=== PATIENT | female | born 1935 | race Caucasian/White ===

== ENCOUNTER 2020-02-26 07:40 | Emergency (ER) | payer MEDICARE ==
[~2020-02-26] VITALS: Ht 152.4 cm; Wt 48.2 kg
[2020-02-26 07:46] VITALS: BP 175/95
[2020-02-26] MEDS ORDERED: acetaminophen 325mg tablet PO ONE (08:40)
[2020-02-26 08:58] LABS: CLARITY,URINE CLEAR (Clear); COLOR,URINE YELLOW (Yellow); GLUCOSE, URINE NEGATIVE (Neg); KETONES,URINE NEGATIVE (Neg); LEUKOCYTE ESTERASE ,URINE SMALL (Neg); NITRITES, URINE NEGATIVE (Neg); OCCULT BLOOD,URINE NEGATIVE (Neg); PROTEIN,URINE NEGATIVE (Neg); UROBILINOGEN,URINE 0.2 E.U/dL (0.2-1.0)
[2020-02-26 09:05] LABS: UA COLLECTION TYPE CLN CATCH MIDSTREAM
[2020-02-26 09:06] LABS: RBC,URINE NONE SEEN /HPF (0-2)
[2020-02-26 09:07] LABS: BACTERIA,URINE FEW /HPF (Neg); MUCUS STRANDS NONE SEEN /LPF (Neg); SQUAMOUS EPITHELIAL CELL,UR FEW /LPF (FEW)
[2020-02-26] MEDS ORDERED: CEFD300C3 PO (09:13)
== END 2020-02-26 09:25 | disposition home or self-care (01) ==
LOC: ER 07:40
DX: N39.0 Urinary tract infection, site not specified (principal); K08.89 Other specified disorders of teeth and supporting structures; R51 Headache; R68.2 Dry mouth, unspecified; Z88.8 Allergy status to other drugs, medicaments and biological substances; Z79.899 Other long term (current) drug therapy
CPT/HCPCS: 81001; 99283

== ENCOUNTER 2020-03-03 21:31 | Emergency (ER) | payer MEDICARE ==
[~2020-03-03] VITALS: Ht 152.4 cm; Wt 50.8 kg
[~2020-03-03 21:31] MED LIST: CEFD300C3 PO
[2020-03-03] MEDS ORDERED: normal saline 1000ML IV soln IVB ONE (22:05)
[2020-03-03 22:21] LABS: CLARITY,URINE CLEAR (Clear); COLOR,URINE YELLOW (Yellow); GLUCOSE, URINE NEGATIVE (Neg); KETONES,URINE NEGATIVE (Neg); LEUKOCYTE ESTERASE ,URINE NEGATIVE (Neg); NITRITES, URINE NEGATIVE (Neg); OCCULT BLOOD,URINE NEGATIVE (Neg); PROTEIN,URINE NEGATIVE (Neg); UROBILINOGEN,URINE 0.2 E.U/dL (0.2-1.0)
[2020-03-03 22:28] LABS: UA COLLECTION TYPE CLN CATCH MIDSTREAM
[2020-03-03 22:53] LABS: BASOPHILS # (AUTO) 0.1 X10'3 (0-0.2); BASOPHILS % (AUTO) 1.3 % (0-1); EOSINOPHILS # (AUTO) 0.1 X10'3 (0-0.9); HEMATOCRIT 38.1 % (35.0-45.0); HEMOGLOBIN 12.2 g/dl (12.0-16.0); LYMPHOCYTES # (AUTO) 1.2 X10'3 (1.1-4.8); LYMPHOCYTES % (AUTO) 26.2 % (21-51); MEAN CORPUSCULAR VOLUME 84.5 FL (78-98); MEAN PLATELET VOLUME 8.2 FL (7.4-10.4); MONOCYTES # (AUTO) 0.6 X10'3 (0-0.9); MONOCYTES % (AUTO) 13.5 % (2-12); NEUTROPHILS # (AUTO) 2.5 X10'3 (1.8-7.7); PLATELET COUNT 203 X10'3 (140-440); RED BLOOD COUNT 4.51 X10'6 (4.20-5.60); RED CELL DISTRIBUTION WIDTH 16.2 % (11.5-14.5); WHITE BLOOD COUNT 4.5 X10'3 (4.5-11.0)
[2020-03-03 23:07] LABS: ALANINE AMINOTRANSFERASE 41 U/L (12-78); ALBUMIN 3.5 G/DL (3.4-5.0); ALKALINE PHOSPHATASE 50 IU/L (46-116); ANION GAP 8 (8-16); ASPARTATE AMINO TRANSFERASE 45 U/L (10-37); BILIRUBIN,TOTAL 0.3 MG/DL (0.1-1.0); BLOOD UREA NITROGEN 23 MG/DL (7-18); BUN/CREATININE RATIO 24.5 (6.6-38.0); CALCIUM 8.8 MG/DL (8.5-10.1); CHLORIDE 106 MMOL/L (99-107); CREATININE 0.94 MG/DL (0.40-0.90); GLUCOSE 96 MG/DL (70-104); POTASSIUM 4.3 MMOL/L (3.5-5.1); SODIUM 142 MMOL/L (135-145); TOTAL CARBON DIOXIDE 28.4 MMOL/L (24-32); TOTAL PROTEIN 6.9 G/DL (6.4-8.2); eGFR 57 ML/MIN
[2020-03-03 23:15] LABS: ETHANOL < 0.010 GM/DL (0.0-0.010)
[2020-03-03 23:49] LABS: URINE AMPHETAMINE SCREEN NEGATIVE (Neg); URINE BARBITUATE SCREEN NEGATIVE (Neg); URINE BENZODIAZEPINES SCREEN NEGATIVE (Neg); URINE CANNABINOID SCREEN NEGATIVE (Neg); URINE COCAINE SCREEN NEGATIVE (Neg); URINE METHADONE SCREEN NEGATIVE (Neg); URINE OPIATE SCREEN NEGATIVE (Neg); URINE PHENCYCLIDINE SCREEN NEGATIVE (Neg)
[2020-03-04 00:15] VITALS: BP 149/76
== END 2020-03-04 00:18 | disposition home or self-care (01) ==
LOC: ER 21:31
DX: N28.9 Disorder of kidney and ureter, unspecified (principal); R47.01 Aphasia; R44.1 Visual hallucinations; R51 Headache; R42 Dizziness and giddiness; R41.0 Disorientation, unspecified; Z88.8 Allergy status to other drugs, medicaments and biological substances; Z79.899 Other long term (current) drug therapy
CPT/HCPCS: 36415; 70450; 80053; 80305; 80320; 81003; 84443; 85025; 96360; 99284; J7030

== ENCOUNTER 2020-04-19 04:50 | Emergency (ER) | payer MEDICARE ==
[~2020-04-19] VITALS: Ht 152.4 cm; Wt 48.2 kg
[2020-04-19] MEDS ORDERED: normal saline 1000ml 1,000 ML IV ONE (05:10)
[2020-04-19] MEDS ORDERED: ondansetron/PF 4mg/2ml inj IV ONE (05:10)
[2020-04-19] MEDS ORDERED: famotidine/PF 10 mg/ml inj IV ONE (05:15)
[2020-04-19] MEDS ORDERED: pantoprazole 40 MG vial IV ONE (05:15)
[2020-04-19] MEDS ORDERED: LIDOcaine Viscous 15ml cup MM ONE (05:15)
[2020-04-19] MEDS ORDERED: mag hydrox/Alum hydrox/simeth 30ml oral suspension PO ONE ×2 (05:15→06:00)
[2020-04-19 05:50] LABS: BASOPHILS % (AUTO) 0.8 % (0-1); EOSINOPHILS # (AUTO) 0.2 X10'3 (0-0.9); EOSINOPHILS % (AUTO) 3.2 % (0-6); HEMATOCRIT 36.3 % (35.0-45.0); HEMOGLOBIN 11.8 g/dl (12.0-16.0); LYMPHOCYTES # (AUTO) 0.9 X10'3 (1.1-4.8); LYMPHOCYTES % (AUTO) 17.6 % (21-51); MEAN CORPUSCULAR HEMOGLOBIN 27.1 PG (27.0-31.0); MEAN CORPUSCULAR HGB CONC 32.6 g/dL (33.0-36.5); MEAN CORPUSCULAR VOLUME 83.1 FL (78-98); MEAN PLATELET VOLUME 8.7 FL (7.4-10.4); MONOCYTES # (AUTO) 0.6 X10'3 (0-0.9); MONOCYTES % (AUTO) 10.2 % (2-12); NEUTROPHILS # (AUTO) 3.7 X10'3 (1.8-7.7); NEUTROPHILS % (AUTO) 68.2 % (42-75); PLATELET COUNT 191 X10'3 (140-440); RED BLOOD COUNT 4.37 X10'6 (4.20-5.60); RED CELL DISTRIBUTION WIDTH 15.8 % (11.5-14.5); WHITE BLOOD COUNT 5.4 X10'3 (4.5-11.0)
[2020-04-19 06:10] LABS: ALANINE AMINOTRANSFERASE 27 U/L (12-78); ALBUMIN 3.5 G/DL (3.4-5.0); ALKALINE PHOSPHATASE 49 IU/L (46-116); ANION GAP 6 (8-16); ASPARTATE AMINO TRANSFERASE 30 U/L (10-37); BILIRUBIN,TOTAL 0.4 MG/DL (0.1-1.0); BLOOD UREA NITROGEN 29 MG/DL (7-18); BUN/CREATININE RATIO 36.3 (6.6-38.0); CALCIUM 9.2 MG/DL (8.5-10.1); CHLORIDE 105 MMOL/L (99-107); GLUCOSE 98 MG/DL (70-104); POTASSIUM 3.9 MMOL/L (3.5-5.1); SODIUM 140 MMOL/L (135-145); TOTAL CARBON DIOXIDE 28.8 MMOL/L (24-32); TOTAL PROTEIN 6.9 G/DL (6.4-8.2); eGFR 69 ML/MIN
[2020-04-19 06:12] LABS: LIPASE 249 U/L (73-393); TROPONIN I < 0.04 NG/ML (0.0-0.05)
[2020-04-19 06:22] LABS: CLARITY,URINE CLEAR (Clear); COLOR,URINE STRAW (Yellow); GLUCOSE, URINE NEGATIVE (Neg); KETONES,URINE NEGATIVE (Neg); LEUKOCYTE ESTERASE ,URINE NEGATIVE (Neg); NITRITES, URINE NEGATIVE (Neg); OCCULT BLOOD,URINE NEGATIVE (Neg); PROTEIN,URINE NEGATIVE (Neg); UROBILINOGEN,URINE 0.2 E.U/dL (0.2-1.0)
[2020-04-19 06:25] LABS: UA COLLECTION TYPE OTHER
--- NOTE | 2020-04-19 07:07 | NUR ---
PT C/O EPIGASTRIC PAIN ON SCALE 8/10
--- NOTE | 2020-04-19 08:20 | NUR ---
PT STATES, IM FEELING MUCH BETTER, IM HAVING NO PAIN.
[2020-04-19] MEDS ORDERED: OMEP20CA15 PO ×2 (08:28→09:29)
[2020-04-19 09:05] VITALS: BP 139/77
--- NOTE | 2020-04-19 09:09 | NUR ---
PT UP TO BR VIA WHEELCHAIR IN STABLE CONDITION.
== END 2020-04-19 09:16 | disposition home or self-care (01) ==
LOC: ER 04:50
DX: K20.9 Esophagitis, unspecified (principal); K59.00 Constipation, unspecified; N20.0 Calculus of kidney; R10.9 Unspecified abdominal pain; R11.0 Nausea; Z79.899 Other long term (current) drug therapy
CPT/HCPCS: 36415; 71045; 74176; 80053; 81003; 83690; 84484; 85025; 93005; 96361; 96374; 96375; 99285; C9113; J2405; J3490; J7030

== ENCOUNTER 2022-03-07 15:20 | Emergency (ER) | payer MEDICARE ==
[~2022-03-07] VITALS: Ht 154.9 cm; Wt 47.7 kg
[~2022-03-07 15:20] MED LIST changes: -CEFD300C3 PO; +OMEP20CA15 PO
[2022-03-07 19:34] LABS: HEMOGLOBIN 13.2 g/dl (12.0-16.0); MEAN CORPUSCULAR VOLUME 80.4 FL (78-98); RED CELL DISTRIBUTION WIDTH 17.5 % (11.5-14.5)
[2022-03-07 19:36] LABS: BASOPHILS % (AUTO) 0.4 % (0-1); EOSINOPHILS % (AUTO) 0.2 % (0-6); HEMATOCRIT 40.7 % (35.0-45.0); LYMPHOCYTES # (AUTO) 0.4 X10'3 (1.1-4.8); LYMPHOCYTES % (AUTO) 9.1 % (21-51); MEAN CORPUSCULAR HEMOGLOBIN 26.1 PG (27.0-31.0); MEAN CORPUSCULAR HGB CONC 32.4 g/dL (33.0-36.5); MEAN PLATELET VOLUME 8.2 FL (7.4-10.4); MONOCYTES # (AUTO) 0.8 X10'3 (0-0.9); MONOCYTES % (AUTO) 17.3 % (2-12); NEUTROPHILS # (AUTO) 3.5 X10'3 (1.8-7.7); PLATELET COUNT 190 X10'3 (140-440); RED BLOOD COUNT 5.06 X10'6 (4.20-5.60); WHITE BLOOD COUNT 4.8 X10'3 (4.5-11.0)
[2022-03-07 19:37] LABS: ALANINE AMINOTRANSFERASE 51 U/L (12-78); ALBUMIN 3.9 G/DL (3.4-5.0); ALKALINE PHOSPHATASE 57 IU/L (46-116); ANION GAP 11 (8-16); ASPARTATE AMINO TRANSFERASE 48 U/L (10-37); BILIRUBIN,TOTAL 0.7 MG/DL (0.1-1.0); BLOOD UREA NITROGEN 23 MG/DL (7-18); BUN/CREATININE RATIO 20.9 (6.6-38.0); CALCIUM 8.8 MG/DL (8.5-10.1); CHLORIDE 101 MMOL/L (99-107); GLUCOSE 102 MG/DL (70-104); POTASSIUM 4.2 MMOL/L (3.5-5.1); SODIUM 137 MMOL/L (135-145); TOTAL CARBON DIOXIDE 25.1 MMOL/L (24-32); TOTAL PROTEIN 7.9 G/DL (6.4-8.2); eGFR 47 ML/MIN
[2022-03-07 19:47] LABS: CLARITY,URINE CLEAR (Clear); COLOR,URINE YELLOW (Yellow); GLUCOSE, URINE NEGATIVE (Neg); KETONES,URINE TRACE mg/dl (Neg); LEUKOCYTE ESTERASE ,URINE NEGATIVE (Neg); NITRITES, URINE NEGATIVE (Neg); OCCULT BLOOD,URINE NEGATIVE (Neg); PH,URINE 6.5 (4.8-8.0); PROTEIN,URINE NEGATIVE (Neg); UROBILINOGEN,URINE 0.2 E.U/dL (0.2-1.0)
[2022-03-07 19:48] LABS: UA COLLECTION TYPE CLN CATCH MIDSTREAM
[2022-03-07] MEDS ORDERED: normal saline 1000ml 1,000 ML IV ONE (19:50)
[2022-03-07] MEDS ORDERED: ringers solution, lactated 1000ml IV soln IV ONE (20:15)
[2022-03-07] MEDS ORDERED: acetaminophen 325mg tablet PO ONE (21:00)
[2022-03-07 22:05] VITALS: BP 143/84
== END 2022-03-07 22:30 | disposition home or self-care (01) ==
LOC: ER 15:21
DX: J10.1 Influenza due to other identified influenza virus with other respiratory manifestations (principal); Z20.822 Contact with and (suspected) exposure to COVID-19; R05.9 Cough, unspecified; R50.9 Fever, unspecified; R53.1 Weakness; E86.0 Dehydration; Z87.440 Personal history of urinary (tract) infections; Z88.1 Allergy status to other antibiotic agents; Z79.899 Other long term (current) drug therapy
CPT/HCPCS: 71045; 80053; 81003; 85025; 87502; 87503; 87635; 93005; 96360; 99285; C9803; J7030; J7120

== ENCOUNTER 2023-06-15 10:22 | Emergency (ER) | payer MEDICARE ==
[~2023-06-15] VITALS: Ht 152.4 cm; Wt 44.0 kg
[2023-06-15 10:24] VITALS: BP 164/93; PULSE 93; TEMP 98.1; O2SAT 98
[2023-06-15] MEDS ORDERED: ketorolac tromethamine 15mg/ml inj. IM ONE (11:10)
[2023-06-15 11:18] VITALS: RESP 17
[2023-06-15] MEDS ORDERED: NAPR-56 PO (11:34)
[2023-06-15] MEDS ORDERED: CYCL-1 PO (11:34)
== END 2023-06-15 11:59 | disposition home or self-care (01) ==
LOC: ER 10:22
DX: S39.012A Strain of muscle, fascia and tendon of lower back, initial encounter (principal); X58.XXXA Exposure to other specified factors, initial encounter; Y93.89 Activity, other specified; Y92.89 Other specified places as the place of occurrence of the external cause; Y99.8 Other external cause status
CPT/HCPCS: 96372; 99284; J1885

== ENCOUNTER 2023-06-21 14:00 | Emergency (ER) | payer MEDICARE ==
[~2023-06-21] VITALS: Ht 152.4 cm; Wt 93.0 kg
[~2023-06-21 14:00] MED LIST changes: +CYCL-1 PO; +NAPR-56 PO
[2023-06-21 14:06] VITALS: BP 124/87; PULSE 130; RESP 18; O2SAT 99
[2023-06-21 14:50] LABS: BASOPHILS # (AUTO) 0.1 X10'3 (0-0.2); BASOPHILS % (AUTO) 0.8 % (0-1); EOSINOPHILS # (AUTO) 0.1 X10'3 (0-0.9); EOSINOPHILS % (AUTO) 1.4 % (0-6); HEMATOCRIT 37.6 % (35.0-45.0); HEMOGLOBIN 12.1 g/dl (12.0-16.0); MEAN CORPUSCULAR HEMOGLOBIN 25.7 PG (27.0-31.0); MEAN CORPUSCULAR VOLUME 80.2 FL (78-98); MEAN PLATELET VOLUME 7.7 FL (7.4-10.4); MONOCYTES # (AUTO) 0.7 X10'3 (0-0.9); MONOCYTES % (AUTO) 10.2 % (2-12); NEUTROPHILS # (AUTO) 4.7 X10'3 (1.8-7.7); NEUTROPHILS % (AUTO) 72.6 % (42-75); PLATELET COUNT 321 X10'3 (140-440); RED BLOOD COUNT 4.69 X10'6 (4.20-5.60); WHITE BLOOD COUNT 6.5 X10'3 (4.5-11.0)
[2023-06-21 15:15] LABS: ALANINE AMINOTRANSFERASE 32 U/L (12-78); ALBUMIN 3.5 G/DL (3.4-5.0); ALKALINE PHOSPHATASE 90 IU/L (46-116); ANION GAP 6 (8-16); ASPARTATE AMINO TRANSFERASE 28 U/L (10-37); BILIRUBIN,TOTAL 0.4 MG/DL (0.1-1.0); BLOOD UREA NITROGEN 31 MG/DL (7-18); BUN/CREATININE RATIO 24.6 (10.0-20.0); CALCIUM 9.3 MG/DL (8.5-10.1); CHLORIDE 100 MMOL/L (99-107); CREATININE 1.26 MG/DL (0.40-0.90); GLUCOSE 102 MG/DL (70-104); POTASSIUM 4.6 MMOL/L (3.5-5.1); PRO BRAIN NATRIURETIC PEPTIDE 360 PG/ML (0-450); SODIUM 136 MMOL/L (135-145); TOTAL CARBON DIOXIDE 29.6 MMOL/L (24-32); eCRCL 23 ML/MIN; eGFR 40 ML/MIN
[2023-06-21] MEDS ORDERED: normal saline 1000ML IV soln IVB ONE (15:25)
[2023-06-21 16:50] LABS: BILIRUBIN,URINE NEGATIVE (Neg); CLARITY,URINE CLEAR (Clear); COLOR,URINE YELLOW (Yellow); GLUCOSE, URINE NEGATIVE (Neg); KETONES,URINE NEGATIVE (Neg); LEUKOCYTE ESTERASE ,URINE NEGATIVE (Neg); NITRITES, URINE NEGATIVE (Neg); OCCULT BLOOD,URINE NEGATIVE (Neg); PH,URINE 6.5 (4.8-8.0); PROTEIN,URINE NEGATIVE (Neg); UROBILINOGEN,URINE 0.2 E.U/dL (0.2-1.0)
[2023-06-21 16:51] LABS: UA COLLECTION TYPE NON-SPECIFIED
[2023-06-21 18:07] VITALS: TEMP 98.2
== END 2023-06-21 18:09 | disposition home or self-care (01) ==
LOC: ER 14:00
DX: E86.0 Dehydration (principal); R00.0 Tachycardia, unspecified; T50.905A Adverse effect of unspecified drugs, medicaments and biological substances, initial encounter; E78.00 Pure hypercholesterolemia, unspecified; Z88.8 Allergy status to other drugs, medicaments and biological substances; Z88.1 Allergy status to other antibiotic agents; Z88.0 Allergy status to penicillin; Z88.2 Allergy status to sulfonamides; Z79.899 Other long term (current) drug therapy; Y92.89 Other specified places as the place of occurrence of the external cause
CPT/HCPCS: 36415; 71045; 80053; 81003; 83880; 84484; 85025; 93005; 99285; J7030

== ENCOUNTER 2023-09-01 07:38 | Emergency (ER) | payer MEDICARE ==
[~2023-09-01] VITALS: Ht 152.4 cm; Wt 45.0 kg
[~2023-09-01 07:38] MED LIST changes: -NAPR-56 PO
[2023-09-01 07:42] VITALS: TEMP 98.1
[2023-09-01 08:38] LABS: BILIRUBIN,URINE NEGATIVE (Neg); CLARITY,URINE SLIGHTLY CLOUDY (Clear); COLOR,URINE YELLOW (Yellow); GLUCOSE, URINE NEGATIVE (Neg); KETONES,URINE NEGATIVE (Neg); LEUKOCYTE ESTERASE ,URINE MODERATE (Neg); NITRITES, URINE NEGATIVE (Neg); OCCULT BLOOD,URINE NEGATIVE (Neg); PROTEIN,URINE NEGATIVE (Neg); UROBILINOGEN,URINE 0.2 E.U/dL (0.2-1.0)
[2023-09-01 08:53] LABS: UA COLLECTION TYPE CLN CATCH MIDSTREAM
[2023-09-01 08:54] LABS: SQUAMOUS EPITHELIAL CELL,UR MANY /LPF (FEW); TRANSITIONAL EPI CELLS,URINE FEW /HPF
[2023-09-01 08:55] LABS: BACTERIA,URINE 2+ /HPF (Neg)
[2023-09-01 08:56] LABS: RBC,URINE 0-2 /HPF (0-2)
[2023-09-01 11:37] LABS: MEAN CORPUSCULAR HEMOGLOBIN 26.7 PG (27.0-31.0)
[2023-09-01 11:38] LABS: BASOPHILS # (AUTO) 0.1 X10'3 (0-0.2); BASOPHILS % (AUTO) 1.6 % (0-1); EOSINOPHILS # (AUTO) 0.1 X10'3 (0-0.9); EOSINOPHILS % (AUTO) 2.3 % (0-6); HEMOGLOBIN 12.3 g/dl (12.0-16.0); LYMPHOCYTES # (AUTO) 0.8 X10'3 (1.1-4.8); LYMPHOCYTES % (AUTO) 16.3 % (21-51); MEAN CORPUSCULAR HGB CONC 32.5 g/dL (33.0-36.5); MEAN CORPUSCULAR VOLUME 82.1 FL (78-98); MEAN PLATELET VOLUME 7.9 FL (7.4-10.4); MONOCYTES # (AUTO) 0.4 X10'3 (0-0.9); MONOCYTES % (AUTO) 8.7 % (2-12); NEUTROPHILS # (AUTO) 3.6 X10'3 (1.8-7.7); NEUTROPHILS % (AUTO) 71.1 % (42-75); PLATELET COUNT 240 X10'3 (140-440); RED BLOOD COUNT 4.62 X10'6 (4.20-5.60); RED CELL DISTRIBUTION WIDTH 17.4 % (11.5-14.5); WHITE BLOOD COUNT 5.1 X10'3 (4.5-11.0)
[2023-09-01 11:43] LABS: ALANINE AMINOTRANSFERASE 35 U/L (12-78); ALBUMIN 3.7 G/DL (3.4-5.0); ALKALINE PHOSPHATASE 60 IU/L (46-116); ANION GAP 6 (8-16); ASPARTATE AMINO TRANSFERASE 42 U/L (10-37); BILIRUBIN,TOTAL 0.5 MG/DL (0.1-1.0); BLOOD UREA NITROGEN 14 MG/DL (7-18); BUN/CREATININE RATIO 17.3 (10.0-20.0); CALCIUM 9.1 MG/DL (8.5-10.1); CHLORIDE 104 MMOL/L (99-107); CREATININE 0.81 MG/DL (0.40-0.90); GLUCOSE 92 MG/DL (70-104); POTASSIUM 4.3 MMOL/L (3.5-5.1); SODIUM 139 MMOL/L (135-145); TOTAL CARBON DIOXIDE 28.9 MMOL/L (24-32); TOTAL PROTEIN 7.5 G/DL (6.4-8.2); eCRCL 35 ML/MIN; eGFR 67 ML/MIN
[2023-09-01 12:09] LABS: BILIRUBIN,URINE NEGATIVE (Neg); CLARITY,URINE SLIGHTLY CLOUDY (Clear); COLOR,URINE STRAW (Yellow); GLUCOSE, URINE NEGATIVE (Neg); KETONES,URINE NEGATIVE (Neg); LEUKOCYTE ESTERASE ,URINE SMALL (Neg); NITRITES, URINE NEGATIVE (Neg); OCCULT BLOOD,URINE NEGATIVE (Neg); PH,URINE 7.5 (4.8-8.0); PROTEIN,URINE NEGATIVE (Neg); UROBILINOGEN,URINE 0.2 E.U/dL (0.2-1.0)
[2023-09-01 12:13] LABS: UA COLLECTION TYPE URINAL
[2023-09-01 12:18] LABS: SQUAMOUS EPITHELIAL CELL,UR MANY /LPF (FEW)
[2023-09-01 12:19] LABS: TRANSITIONAL EPI CELLS,URINE FEW /HPF
[2023-09-01 12:25] LABS: BACTERIA,URINE 1+ /HPF (Neg)
[2023-09-01 12:27] LABS: RBC,URINE 0-2 /HPF (0-2)
[2023-09-01 12:35] LABS: YEAST FEW /HPF (NEGATIVE)
[2023-09-01 13:03] VITALS: BP 134/79; PULSE 69; RESP 18; O2SAT 99
[2023-09-01] MEDS ORDERED: CEPH250T PO (13:07)
== END 2023-09-01 13:23 | disposition home or self-care (01) ==
LOC: ER 07:39
DX: N39.0 Urinary tract infection, site not specified (principal); H66.92 Otitis media, unspecified, left ear; R10.2 Pelvic and perineal pain; E78.00 Pure hypercholesterolemia, unspecified; Z79.2 Long term (current) use of antibiotics; Z79.899 Other long term (current) drug therapy; Z88.8 Allergy status to other drugs, medicaments and biological substances; Z88.1 Allergy status to other antibiotic agents; Z87.440 Personal history of urinary (tract) infections
CPT/HCPCS: 36415; 71045; 80053; 81001; 83605; 83735; 84145; 85025; 87040; 93005; 99285

== ENCOUNTER 2023-11-19 10:15 | Emergency (ER) | payer MEDICARE ==
[~2023-11-19] VITALS: Ht 152.4 cm; Wt 45.4 kg
[2023-11-19 11:10] LABS: BILIRUBIN,URINE NEGATIVE (Neg); CLARITY,URINE CLEAR (Clear); COLOR,URINE YELLOW (Yellow); GLUCOSE, URINE NEGATIVE (Neg); KETONES,URINE NEGATIVE (Neg); LEUKOCYTE ESTERASE ,URINE LARGE (Neg); NITRITES, URINE POSITIVE (Neg); OCCULT BLOOD,URINE TRACE-INTACT (Neg); PROTEIN,URINE NEGATIVE (Neg); UROBILINOGEN,URINE 0.2 E.U/dL (0.2-1.0)
[2023-11-19 11:20] LABS: UA COLLECTION TYPE CLN CATCH MIDSTREAM
[2023-11-19 11:22] LABS: BACTERIA,URINE 4+ /HPF (Neg); MUCUS STRANDS FEW /LPF (Neg); SQUAMOUS EPITHELIAL CELL,UR FEW /LPF (FEW); WBC CLUMPS,URINE FEW /HPF (NEGATIVE); WBC,URINE TNTC /HPF (0-4)
[2023-11-19] MEDS ORDERED: CEPH-585 PO (11:58)
[2023-11-19 12:05] VITALS: BP 155/82; PULSE 87; RESP 16; TEMP 97.7; O2SAT 99
== END 2023-11-19 12:06 | disposition home or self-care (01) ==
LOC: ER 10:15
DX: N39.0 Urinary tract infection, site not specified (principal); E78.00 Pure hypercholesterolemia, unspecified; Z88.8 Allergy status to other drugs, medicaments and biological substances; Z88.1 Allergy status to other antibiotic agents; Z88.6 Allergy status to analgesic agent; Z79.899 Other long term (current) drug therapy
CPT/HCPCS: 81001; 87077; 87088; 87186; 99284

== ENCOUNTER 2023-12-04 10:40 | Emergency (ER) | payer MEDICARE ==
[~2023-12-04] VITALS: Ht 157.5 cm; Wt 45.4 kg
[2023-12-04 10:57] VITALS: BP 164/58; PULSE 82; RESP 16; TEMP 98.6; O2SAT 99
[2023-12-04] MEDS ORDERED: ERYT1OIN6 RIGHTEYE (11:40)
== END 2023-12-04 11:48 | disposition home or self-care (01) ==
LOC: ER 10:41
DX: S05.01XA Injury of conjunctiva and corneal abrasion without foreign body, right eye, initial encounter (principal); X58.XXXA Exposure to other specified factors, initial encounter; Y93.89 Activity, other specified; Y92.89 Other specified places as the place of occurrence of the external cause; Y99.8 Other external cause status; E78.00 Pure hypercholesterolemia, unspecified; Z88.8 Allergy status to other drugs, medicaments and biological substances; Z88.1 Allergy status to other antibiotic agents; Z79.899 Other long term (current) drug therapy
CPT/HCPCS: 99283

== ENCOUNTER 2024-01-28 09:26 | Emergency (ER) | payer MEDICARE ==
[~2024-01-28] VITALS: Ht 149.9 cm; Wt 44.6 kg
[2024-01-28 09:27] VITALS: BP 132/79; PULSE 83; O2SAT 99
[2024-01-28 10:01] LABS: BILIRUBIN,URINE NEGATIVE (Neg); CLARITY,URINE CLOUDY (Clear); COLOR,URINE YELLOW (Yellow); GLUCOSE, URINE NEGATIVE (Neg); KETONES,URINE NEGATIVE (Neg); LEUKOCYTE ESTERASE ,URINE NEGATIVE (Neg); NITRITES, URINE NEGATIVE (Neg); OCCULT BLOOD,URINE NEGATIVE (Neg); PROTEIN,URINE NEGATIVE (Neg); UROBILINOGEN,URINE 0.2 E.U/dL (0.2-1.0)
[2024-01-28 10:18] LABS: UA COLLECTION TYPE CLN CATCH MIDSTREAM
[2024-01-28 10:19] LABS: BACTERIA,URINE 1+ /HPF (Neg); MUCUS STRANDS FEW /LPF (Neg); RBC,URINE 0-2 /HPF (0-2); SQUAMOUS EPITHELIAL CELL,UR MANY /LPF (FEW); WBC,URINE 0-4 /HPF (0-4)
[2024-01-28 11:05] VITALS: RESP 16; TEMP 97.7
== END 2024-01-28 11:06 | disposition home or self-care (01) ==
LOC: ER 09:27
DX: R30.0 Dysuria (principal); N95.2 Postmenopausal atrophic vaginitis; H92.01 Otalgia, right ear; H61.23 Impacted cerumen, bilateral; E78.00 Pure hypercholesterolemia, unspecified; Z88.8 Allergy status to other drugs, medicaments and biological substances; Z88.1 Allergy status to other antibiotic agents; Z88.2 Allergy status to sulfonamides; Z88.0 Allergy status to penicillin; Z79.899 Other long term (current) drug therapy
CPT/HCPCS: 81001; 99283

== ENCOUNTER 2024-02-12 13:02 | Emergency (ER) | payer MEDICARE ==
[~2024-02-12] VITALS: Ht 152.4 cm; Wt 42.3 kg
[2024-02-12 13:07] VITALS: BP 141/87; PULSE 84; RESP 16; TEMP 97.8; O2SAT 99
[2024-02-12 14:05] LABS: BILIRUBIN,URINE NEGATIVE (Neg); CLARITY,URINE SLIGHTLY CLOUDY (Clear); COLOR,URINE YELLOW (Yellow); GLUCOSE, URINE NEGATIVE (Neg); KETONES,URINE NEGATIVE (Neg); LEUKOCYTE ESTERASE ,URINE NEGATIVE (Neg); NITRITES, URINE NEGATIVE (Neg); OCCULT BLOOD,URINE NEGATIVE (Neg); PROTEIN,URINE NEGATIVE (Neg); UROBILINOGEN,URINE 0.2 E.U/dL (0.2-1.0)
[2024-02-12 14:16] LABS: UA COLLECTION TYPE CLN CATCH MIDSTREAM
[2024-02-12 14:17] LABS: MUCUS STRANDS FEW /LPF (Neg); SQUAMOUS EPITHELIAL CELL,UR MODERATE /LPF (FEW); YEAST MODERATE /HPF (NEGATIVE)
[2024-02-12 14:18] LABS: BACTERIA,URINE 1+ /HPF (Neg); RBC,URINE 0-2 /HPF (0-2); WBC,URINE 0-4 /HPF (0-4)
== END 2024-02-12 14:42 | disposition home or self-care (01) ==
LOC: ER 13:02
DX: H61.21 Impacted cerumen, right ear (principal); Z88.8 Allergy status to other drugs, medicaments and biological substances; E78.00 Pure hypercholesterolemia, unspecified
CPT/HCPCS: 69210; 81001; 99284

== ENCOUNTER 2024-03-04 12:21 | Emergency (ER) | payer MEDICARE ==
[~2024-03-04] VITALS: Ht 152.4 cm; Wt 42.3 kg
[2024-03-04 12:22] VITALS: TEMP 98.2
[2024-03-04 13:44] VITALS: BP 138/86; PULSE 78; RESP 17; O2SAT 99
== END 2024-03-04 14:59 | disposition home or self-care (01) ==
LOC: ER 12:21
DX: S09.8XXA Other specified injuries of head, initial encounter (principal); E78.00 Pure hypercholesterolemia, unspecified; Z88.1 Allergy status to other antibiotic agents; Z79.899 Other long term (current) drug therapy; W18.39XA Other fall on same level, initial encounter; Y93.89 Activity, other specified; Y92.89 Other specified places as the place of occurrence of the external cause; Y99.8 Other external cause status
CPT/HCPCS: 70450; 73030; 99284

== ENCOUNTER 2024-04-19 11:51 | Emergency (ER) | payer MEDICARE ==
[~2024-04-19] VITALS: Ht 152.4 cm; Wt 42.3 kg
[2024-04-19 14:20] LABS: BILIRUBIN,URINE NEGATIVE (Neg); CLARITY,URINE SLIGHTLY CLOUDY (Clear); COLOR,URINE STRAW (Yellow); GLUCOSE, URINE NEGATIVE (Neg); KETONES,URINE NEGATIVE (Neg); LEUKOCYTE ESTERASE ,URINE NEGATIVE (Neg); NITRITES, URINE NEGATIVE (Neg); OCCULT BLOOD,URINE NEGATIVE (Neg); PH,URINE 6.5 (4.8-8.0); PROTEIN,URINE NEGATIVE (Neg); UROBILINOGEN,URINE 0.2 E.U/dL (0.2-1.0)
[2024-04-19 14:25] LABS: UA COLLECTION TYPE CLN CATCH MIDSTREAM
[2024-04-19 14:30] LABS: SQUAMOUS EPITHELIAL CELL,UR MANY /LPF (FEW)
[2024-04-19 14:31] LABS: YEAST FEW /HPF (NEGATIVE)
[2024-04-19 14:32] LABS: BACTERIA,URINE 1+ /HPF (Neg); RBC,URINE 0-2 /HPF (0-2); WBC,URINE 0-4 /HPF (0-4)
[2024-04-19 15:12] VITALS: BP 148/80; PULSE 78; RESP 18; O2SAT 97
[2024-04-19] MEDS ORDERED: NITR100C6 PO (15:39)
[2024-04-19] MEDS ORDERED: AMOX-580 PO (16:21)
[2024-04-19] MEDS ORDERED: CIPR7.5D7 EACH EAR (16:21)
[2024-04-19 16:38] VITALS: TEMP 98.5
== END 2024-04-19 16:40 | disposition home or self-care (01) ==
LOC: ER 11:52
DX: N39.0 Urinary tract infection, site not specified (principal); H60.8X2 Other otitis externa, left ear; E78.00 Pure hypercholesterolemia, unspecified; Z88.1 Allergy status to other antibiotic agents; Z88.8 Allergy status to other drugs, medicaments and biological substances; Z79.899 Other long term (current) drug therapy
CPT/HCPCS: 81001; 99283

== ENCOUNTER 2024-04-26 13:31 | Emergency (ER) | payer MEDICARE ==
[~2024-04-26] VITALS: Ht 152.4 cm; Wt 44.6 kg
[~2024-04-26 13:31] MED LIST changes: +AMOX-580 PO; +CIPR7.5D7 EACH EAR
[2024-04-26 13:38] VITALS: TEMP 99
[2024-04-26 14:49] VITALS: BP 150/80; PULSE 65; RESP 14; O2SAT 99
== END 2024-04-26 14:52 | disposition home or self-care (01) ==
LOC: ER 13:32
DX: K52.1 Toxic gastroenteritis and colitis (principal); T36.95XA Adverse effect of unspecified systemic antibiotic, initial encounter; Z88.6 Allergy status to analgesic agent; Z88.8 Allergy status to other drugs, medicaments and biological substances; Y92.89 Other specified places as the place of occurrence of the external cause
CPT/HCPCS: 99281

== ENCOUNTER 2024-05-26 02:25 | Emergency (ER) | payer MEDICARE ==
[~2024-05-26] VITALS: Ht 152.4 cm; Wt 37.8 kg
[~2024-05-26 02:25] MED LIST changes: -AMOX-580 PO
[2024-05-26 07:30] VITALS: TEMP 98
[2024-05-26 08:01] LABS: BILIRUBIN,URINE NEGATIVE (Neg); CLARITY,URINE CLEAR (Clear); COLOR,URINE YELLOW (Yellow); GLUCOSE, URINE NEGATIVE (Neg); KETONES,URINE NEGATIVE (Neg); LEUKOCYTE ESTERASE ,URINE NEGATIVE (Neg); NITRITES, URINE NEGATIVE (Neg); OCCULT BLOOD,URINE NEGATIVE (Neg); PROTEIN,URINE NEGATIVE (Neg); UROBILINOGEN,URINE 0.2 E.U/dL (0.2-1.0)
[2024-05-26 08:10] LABS: UA COLLECTION TYPE NON-SPECIFIED
[2024-05-26 08:23] LABS: BASOPHILS # (AUTO) 0.1 X10'3 (0-0.2); BASOPHILS % (AUTO) 1.4 % (0-1); EOSINOPHILS # (AUTO) 0.2 X10'3 (0-0.9); EOSINOPHILS % (AUTO) 4.3 % (0-6); HEMATOCRIT 37.2 % (35.0-45.0); HEMOGLOBIN 11.8 g/dl (12.0-16.0); LYMPHOCYTES % (AUTO) 17.6 % (21-51); MEAN CORPUSCULAR HEMOGLOBIN 25.7 PG (27.0-31.0); MEAN CORPUSCULAR HGB CONC 31.6 g/dL (33.0-36.5); MEAN CORPUSCULAR VOLUME 81.5 FL (78-98); MEAN PLATELET VOLUME 7.8 FL (7.4-10.4); MONOCYTES # (AUTO) 0.6 X10'3 (0-0.9); NEUTROPHILS # (AUTO) 3.7 X10'3 (1.8-7.7); NEUTROPHILS % (AUTO) 66.7 % (42-75); PLATELET COUNT 246 X10'3 (140-440); RED BLOOD COUNT 4.57 X10'6 (4.20-5.60); RED CELL DISTRIBUTION WIDTH 17.7 % (11.5-14.5); WHITE BLOOD COUNT 5.5 X10'3 (4.5-11.0)
[2024-05-26 08:27] LABS: ALANINE AMINOTRANSFERASE 31 U/L (12-78); ALBUMIN 3.5 G/DL (3.4-5.0); ALBUMIN/GLOBULIN RATIO 1.1 (1.1-1.5); ALKALINE PHOSPHATASE 48 IU/L (46-116); ANION GAP 5 (8-16); ASPARTATE AMINO TRANSFERASE 37 U/L (10-37); BILIRUBIN,TOTAL 0.5 MG/DL (0.1-1.0); BLOOD UREA NITROGEN 16 MG/DL (7-18); BUN/CREATININE RATIO 18.4 (10.0-20.0); CALCIUM 9.1 MG/DL (8.5-10.1); CHLORIDE 108 MMOL/L (99-107); CREATININE 0.87 MG/DL (0.40-0.90); GLUCOSE 94 MG/DL (70-104); POTASSIUM 3.9 MMOL/L (3.5-5.1); SODIUM 142 MMOL/L (135-145); TOTAL CARBON DIOXIDE 28.8 MMOL/L (24-32); TOTAL PROTEIN 6.8 G/DL (6.4-8.2); eCRCL 27 ML/MIN; eGFR 62 ML/MIN
[2024-05-26 09:51] VITALS: BP 155/92; PULSE 67; RESP 16; O2SAT 99
== END 2024-05-26 09:40 | disposition home or self-care (01) ==
LOC: ER 02:25
DX: E86.0 Dehydration (principal); R51.9 Headache, unspecified; R42 Dizziness and giddiness; E78.00 Pure hypercholesterolemia, unspecified; Z88.1 Allergy status to other antibiotic agents; Z79.1 Long term (current) use of non-steroidal anti-inflammatories (NSAID); Z79.899 Other long term (current) drug therapy; Z85.89 Personal history of malignant neoplasm of other organs and systems
CPT/HCPCS: 36415; 70450; 80053; 81003; 85025; 99284

== ENCOUNTER 2024-09-24 00:12 | Inpatient (IN) | payer MEDICARE ==
[2024-09-24] VITALS (9 sets, daily range): BP systolic 93–143; BP diastolic 51–90; PULSE 76–107; RESP 14–21; TEMP 97.2–99; O2SAT 93–96
[~2024-09-24] VITALS: Ht 152.4 cm; Wt 42.3 kg
[2024-09-24 00:39] LABS: BASOPHILS % (AUTO) 0.3 % (0-1); EOSINOPHILS # (AUTO) 0.1 X10'3 (0-0.9); EOSINOPHILS % (AUTO) 1.1 % (0-6); HEMATOCRIT 35.7 % (35.0-45.0); HEMOGLOBIN 11.7 g/dl (12.0-16.0); LYMPHOCYTES # (AUTO) 0.9 X10'3 (1.1-4.8); LYMPHOCYTES % (AUTO) 7.2 % (21-51); MEAN CORPUSCULAR HEMOGLOBIN 26.5 PG (27.0-31.0); MEAN CORPUSCULAR HGB CONC 32.7 g/dL (33.0-36.5); MEAN CORPUSCULAR VOLUME 80.9 FL (78-98); MEAN PLATELET VOLUME 7.6 FL (7.4-10.4); MONOCYTES # (AUTO) 1.6 X10'3 (0-0.9); MONOCYTES % (AUTO) 12.1 % (2-12); NEUTROPHILS # (AUTO) 10.4 X10'3 (1.8-7.7); NEUTROPHILS % (AUTO) 79.3 % (42-75); PLATELET COUNT 358 X10'3 (140-440); RED BLOOD COUNT 4.41 X10'6 (4.20-5.60); RED CELL DISTRIBUTION WIDTH 16.7 % (11.5-14.5); WHITE BLOOD COUNT 13.1 X10'3 (4.5-11.0)
[2024-09-24 00:47] LABS: ALANINE AMINOTRANSFERASE 53 U/L (12-78); ALBUMIN/GLOBULIN RATIO 0.7 (1.1-1.5); ALKALINE PHOSPHATASE 92 IU/L (46-116); ANION GAP 9 (8-16); ASPARTATE AMINO TRANSFERASE 55 U/L (10-37); BILIRUBIN,TOTAL 0.6 MG/DL (0.1-1.0); BLOOD UREA NITROGEN 20 MG/DL (7-18); BUN/CREATININE RATIO 25.3 (10.0-20.0); CALCIUM 9.2 MG/DL (8.5-10.1); CHLORIDE 99 MMOL/L (99-107); CREATININE 0.79 MG/DL (0.40-0.90); GLUCOSE 127 MG/DL (70-104); POTASSIUM 4.2 MMOL/L (3.5-5.1); SODIUM 134 MMOL/L (135-145); TOTAL CARBON DIOXIDE 26.5 MMOL/L (24-32); TOTAL PROTEIN 7.4 G/DL (6.4-8.2); eCRCL 33 ML/MIN; eGFR 69 ML/MIN
[2024-09-24 00:55] LABS: PRO BRAIN NATRIURETIC PEPTIDE 235 PG/ML (0-450)
[2024-09-24] MEDS: normal saline 1000ml 1,000 ML IV ONE (00:56)
[2024-09-24 01:07] LABS: PLATELET ESTIMATE NORMAL; TOTAL CELLS COUNTED 100
[2024-09-24 01:08] LABS: ACANTHOCYTES FEW; POIKILOCYTOSIS FEW
[2024-09-24 01:09] LABS: ELLIPTOCYTES FEW
[2024-09-24] MEDS ORDERED: magnesium sulf-water 2g/50mL 50 ML IV PRN (03:40)
[2024-09-24] MEDS ORDERED: mag hydrox/Alum hydrox/simeth 30ml oral suspension PO PRN (03:40)
[2024-09-24] MEDS ORDERED: morphine 2 MG/ML inj. syringe IV PRN ×2 (03:40)
[2024-09-24] MEDS ORDERED: ondansetron/PF 4mg/2ml inj IV PRN (03:40)
[2024-09-24] MEDS ORDERED: magnesium hydroxide 30ml (MOM) UD suspension PO PRN (03:40)
[2024-09-24] MEDS ORDERED: potassium Cl 20 mEq SR tablet PO PRN ×2 (03:40)
[2024-09-24] MEDS ORDERED: potassium Cl 40MEQ/1/2NS 520ml 520 ML IV PRN (03:40)
[2024-09-24] MEDS ORDERED: acetaminophen 325mg tablet PO PRN (03:40)
[2024-09-24] MEDS ORDERED: magnesium Cl slow-release 64mg tablet PO PRN (03:40)
[2024-09-24] MEDS ORDERED: ipratropium/albuterol 3ml nebule NEB PRN (03:40)
[2024-09-24] MEDS ORDERED: magnesium sulf-water 4G/100mL 100 ML IV PRN (03:40)
[2024-09-24 04:09] LABS: BILIRUBIN,URINE NEGATIVE (Neg); CLARITY,URINE CLEAR (Clear); COLOR,URINE YELLOW (Yellow); GLUCOSE, URINE NEGATIVE (Neg); KETONES,URINE NEGATIVE (Neg); LEUKOCYTE ESTERASE ,URINE NEGATIVE (Neg); OCCULT BLOOD,URINE NEGATIVE (Neg); PROTEIN,URINE 30 mg/dl (Neg)
[2024-09-24 04:11] LABS: POTASSIUM 3.7 MMOL/L (3.5-5.1)
[2024-09-24 04:17] LABS: NITRITES, URINE NEGATIVE (Neg)
[2024-09-24 04:18] LABS: UA COLLECTION TYPE NON-SPECIFIED
[2024-09-24 04:18] LABS: HEMOGLOBIN A1C 5.7 % (4.5-6.2)
[2024-09-24 04:24] LABS: D-DIMER 1.79 MG/L FEU (0-0.50)
[2024-09-24 04:24] LABS: BACTERIA,URINE NONE SEEN /HPF (Neg); RBC,URINE 0-2 /HPF (0-2); SQUAMOUS EPITHELIAL CELL,UR NONE SEEN /LPF (FEW); WBC,URINE 0-4 /HPF (0-4)
[2024-09-24] MEDS: acetaminophen 1,000mg/100ml IV 100 ML IV ONE (04:41)
[2024-09-24] MEDS: CefTRIAXone/D5W-Rocephin 1gm 50 ML IV ONE (04:44)
[2024-09-24] MEDS: azithromycin/NS 500mg/250ml 250 ML IV ONE (05:11)
[2024-09-24] MEDS: normal saline 1000ml 1,000 ML IV SCH (05:12)
[2024-09-24] MEDS: docusate sod 100mg capsule PO SCH (08:02)
[2024-09-24] MEDS: guaiFENesin ER 600mg tablet PO SCH (08:02)
[2024-09-24] MEDS: heparin, porcine 5000 units/ml vial SQ SCH (08:02)
[2024-09-24] MEDS: famotidine 20mg tablet PO SCH (08:02)
[2024-09-24] MEDS: K and/or MAG REPLACEMENT MC SCH (08:03)
[2024-09-24] MEDS ORDERED: iohexol 350MG/ML 100ml bottle IV ONE (13:21)
[2024-09-24] MEDS: CefTRIAXone/D5W-Rocephin 1gm 50 ML IV SCH (14:54)
[2024-09-24] MEDS: methylPREDNISolone sod succ 125mg/2ml vial IV ONE (14:54)
[2024-09-24] MEDS ORDERED: ESTR1VAG10 VG (16:14)
[2024-09-24] MEDS ORDERED: ATOR10TA70 PO (16:14)
[2024-09-24] MEDS: methylPREDNISolone sod succ 125mg/2ml vial IV SCH (16:48)
[2024-09-24] MEDS: azithromycin/NS 500mg/250ml 250 ML IV SCH (20:00)
[2024-09-25] VITALS (9 sets, daily range): BP systolic 100–151; BP diastolic 57–71; PULSE 80–94; RESP 14–19; TEMP 97.4–98.6; O2SAT 94–97
[2024-09-25] MEDS: Melatonin 3mg tablet PO PRN (00:42)
[2024-09-25 06:41] LABS: BASOPHILS % (AUTO) 0.2 % (0-1); EOSINOPHILS % (AUTO) 0.1 % (0-6); HEMATOCRIT 32.2 % (35.0-45.0); HEMOGLOBIN 10.7 g/dl (12.0-16.0); LYMPHOCYTES # (AUTO) 0.8 X10'3 (1.1-4.8); LYMPHOCYTES % (AUTO) 6.2 % (21-51); MEAN CORPUSCULAR HGB CONC 33.3 g/dL (33.0-36.5); MEAN PLATELET VOLUME 7.9 FL (7.4-10.4); MONOCYTES # (AUTO) 0.5 X10'3 (0-0.9); MONOCYTES % (AUTO) 4.2 % (2-12); NEUTROPHILS % (AUTO) 89.3 % (42-75); PLATELET COUNT 357 X10'3 (140-440); RED BLOOD COUNT 3.98 X10'6 (4.20-5.60); RED CELL DISTRIBUTION WIDTH 16.9 % (11.5-14.5); WHITE BLOOD COUNT 12.3 X10'3 (4.5-11.0)
[2024-09-25 07:19] LABS: ALANINE AMINOTRANSFERASE 32 U/L (12-78); ALBUMIN 2.1 G/DL (3.4-5.0); ALBUMIN/GLOBULIN RATIO 0.6 (1.1-1.5); ALKALINE PHOSPHATASE 76 IU/L (46-116); ANION GAP 11 (8-16); ASPARTATE AMINO TRANSFERASE 27 U/L (10-37); BILIRUBIN,TOTAL 0.3 MG/DL (0.1-1.0); BLOOD UREA NITROGEN 18 MG/DL (7-18); BUN/CREATININE RATIO 25.7 (10.0-20.0); CALCIUM 8.4 MG/DL (8.5-10.1); CHLORIDE 104 MMOL/L (99-107); CHOL/HDL RATIO 2.5 (0.00-4.99); CHOLESTEROL 110 MG/DL (0-200); GLUCOSE 138 MG/DL (70-104); HDL CHOLESTEROL 44 MG/DL (35-60); LDL CHOLESTEROL 61 MG/DL (50-100); SODIUM 138 MMOL/L (135-145); TOTAL CARBON DIOXIDE 22.9 MMOL/L (24-32); TOTAL PROTEIN 5.9 G/DL (6.4-8.2); TRIGLYCERIDES 54 MG/DL (20-135); eCRCL 38 ML/MIN; eGFR 79 ML/MIN
[2024-09-25] MEDS: guaiFENesin 200 MG/10 ML oral syrup UD cup PO PRN (08:13)
[2024-09-25] MEDS ORDERED: famotidine 20mg tablet PO SCH (12:36)
[2024-09-25] MEDS: pantoprazole 40mg Tablet.DR PO SCH (19:43)
[2024-09-26] VITALS: BP 132/78; PULSE 85; RESP 16; TEMP 97.2; O2SAT 97
[2024-09-26 07:03] LABS: BASOPHILS % (AUTO) 0.1 % (0-1); EOSINOPHILS % (AUTO) 0.1 % (0-6); HEMATOCRIT 32.7 % (35.0-45.0); HEMOGLOBIN 10.7 g/dl (12.0-16.0); LYMPHOCYTES # (AUTO) 0.9 X10'3 (1.1-4.8); LYMPHOCYTES % (AUTO) 4.8 % (21-51); MEAN CORPUSCULAR HEMOGLOBIN 26.4 PG (27.0-31.0); MEAN CORPUSCULAR HGB CONC 32.9 g/dL (33.0-36.5); MEAN CORPUSCULAR VOLUME 80.2 FL (78-98); MEAN PLATELET VOLUME 8.1 FL (7.4-10.4); MONOCYTES # (AUTO) 1.1 X10'3 (0-0.9); MONOCYTES % (AUTO) 5.8 % (2-12); NEUTROPHILS # (AUTO) 17.1 X10'3 (1.8-7.7); NEUTROPHILS % (AUTO) 89.2 % (42-75); PLATELET COUNT 466 X10'3 (140-440); RED BLOOD COUNT 4.07 X10'6 (4.20-5.60); RED CELL DISTRIBUTION WIDTH 16.8 % (11.5-14.5); WHITE BLOOD COUNT 19.2 X10'3 (4.5-11.0)
[2024-09-26 07:48] LABS: ALANINE AMINOTRANSFERASE 37 U/L (12-78); ALBUMIN 2.6 G/DL (3.4-5.0); ALBUMIN/GLOBULIN RATIO 0.6 (1.1-1.5); ALKALINE PHOSPHATASE 83 IU/L (46-116); ANION GAP 10 (8-16); ASPARTATE AMINO TRANSFERASE 37 U/L (10-37); BILIRUBIN,TOTAL 0.3 MG/DL (0.1-1.0); BLOOD UREA NITROGEN 28 MG/DL (7-18); BUN/CREATININE RATIO 29.8 (10.0-20.0); CALCIUM 9.1 MG/DL (8.5-10.1); CHLORIDE 103 MMOL/L (99-107); CREATININE 0.94 MG/DL (0.40-0.90); GLUCOSE 132 MG/DL (70-104); MAGNESIUM 2.1 MG/DL (1.5-2.4); POTASSIUM 4.3 MMOL/L (3.5-5.1); SODIUM 136 MMOL/L (135-145); TOTAL CARBON DIOXIDE 23.3 MMOL/L (24-32); TOTAL PROTEIN 6.8 G/DL (6.4-8.2); eCRCL 28 ML/MIN; eGFR 56 ML/MIN
[2024-09-26] MEDS ORDERED: famotidine 20mg tablet PO SCH (08:35)
[2024-09-26] MEDS: atorvastatin 10mg tablet PO SCH (08:37)
[2024-09-26] MEDS ORDERED: AZIT500T PO (11:44)
[2024-09-26] MEDS ORDERED: ALBU18HF2 INH (11:44)
[2024-09-26] MEDS ORDERED: CEFD300C3 PO (11:44)
[2024-09-26] MEDS ORDERED: PRED10TA23 PO (11:44)
[2024-09-26] MEDS ORDERED: LACT1CAP26 PO (11:44)
[2024-09-26] MEDS: acetaminophen 325mg tablet PO STA (12:44)
== END 2024-09-26 14:05 | disposition home or self-care (01) | DRG 871 ==
LOC: ER 00:13 → ED HOLD 03:11 → EDBEDREQ 06:13 → PCU 3S 07:10
PROVIDERS: ADMIT Surgery Surgical Critical Care; ATTEND Family Medicine
PROC: B32T1ZZ Computerized Tomography (CT Scan) of Left Pulmonary Artery using Low Osmolar Contrast (ICD-10-PCS; principal; 2024-09-23)
PROC: B3201ZZ Computerized Tomography (CT Scan) of Thoracic Aorta using Low Osmolar Contrast (ICD-10-PCS; 2024-09-23)
PROC: B32S1ZZ Computerized Tomography (CT Scan) of Right Pulmonary Artery using Low Osmolar Contrast (ICD-10-PCS; 2024-09-23)
DX: A41.9 Sepsis, unspecified organism (principal); J18.9 Pneumonia, unspecified organism; J69.0 Pneumonitis due to inhalation of food and vomit; J96.01 Acute respiratory failure with hypoxia; E87.1 Hypo-osmolality and hyponatremia; Z20.822 Contact with and (suspected) exposure to COVID-19; E88.09 Other disorders of plasma-protein metabolism, not elsewhere classified; E78.00 Pure hypercholesterolemia, unspecified; D50.8 Other iron deficiency anemias; R73.9 Hyperglycemia, unspecified; Z88.8 Allergy status to other drugs, medicaments and biological substances; Z88.1 Allergy status to other antibiotic agents; Z88.2 Allergy status to sulfonamides
CPT/HCPCS: 36415; 71045; 71275; 80053; 80061; 81001; 83036; 83605; 83735; 83880; 84132; 84145; 84484; 85007; 85025; 85379; 87040; 87081; 87502; 87503; 87811; 93005; 94760; 96360; 97116; 97161; 97530; 99291; G0378; J0131; J0456; J0696; J1644; J2919; J7030; Q9967

== ENCOUNTER 2025-01-05 12:21 | Emergency (ER) | payer MEDICARE ==
[~2025-01-05] VITALS: Ht 152.4 cm; Wt 45.3 kg
[~2025-01-05 12:21] MED LIST changes: +ALBU18HF2 INH; +ATOR10TA70 PO; -CIPR7.5D7 EACH EAR; +ESTR1VAG10 VG; +LACT1CAP26 PO
[2025-01-05 12:23] VITALS: BP 166/98; PULSE 87; RESP 16; O2SAT 100
--- NOTE | 2025-01-05 12:30 | Physician Documentation ---
History of Present Illness ~ Chief Complaint: Urinary Symptoms Stated Complaint: URINARY COMPLICATIONS Time Seen by MD: 12:30 Primary Medical Doctor: [facility] DR [facility] [place] [facility] This is an 89-year-old female who presents to the emergency department reporting that she was having burning with urination. She also notes vaginal pain for the last several days. She notes a history of recurrent urinary tract infections that has been ongoing in the entire 65 years of her marriage, ever since her honeymoon. She does see a bricklayer apprentice and has an E string in place. She denies any unusual vaginal discharge. She denies any fevers, chills, nausea, body aches. 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 Medication Reconciliation Allergies: Coded Allergies: metronidazole (Unverified Allergy, Intermediate, [facility] IT[facility], 04/19/24) clindamycin (Verified Allergy, Unknown, 04/19/24) estradiol (Verified Allergy, Unknown, 04/19/24) Uncoded Allergies: ALL CILLINS (Allergy, Severe, 06/15/23) SULFA (Allergy, Severe, 06/15/23) ALL CAINS (Allergy, Unknown, 06/08/23) Scheduled Atorvastatin Calcium (Atorvastatin Calcium), 1 TAB PO DAILY, (Reported) Cyclobenzaprine* (Cyclobenzaprine*), 1 TAB PO TID Estradiol (Estring), 1 EA VG [id number], (Reported) Lactobacillus Rhamnosus (Culturelle), 1 CAP PO BID Omeprazole (Omeprazole), 2 CAP PO BID Scheduled PRN Albuterol Sulfate (Ventolin Hfa), 2 PUFFS INH Q4HPRN PRN for wheezing Past Medical History Past Medical History: High Cholesterol, UTI, *CANCER* Past Surgical History: no surgical history Alcohol Use: None Drug Use: none Lives In: Home Review of Systems ROS As stated above in the HPI, otherwise all systems are reviewed and negative. Physical Exam Vital Signs: Temperature: 98.1, Source: Oral, Heart Rate: 87, Respiratory Rate: 16, BP: 166/98, Pulse Oximetry: 100, Weight: 45.300 Oxygen Flow Rate: 0 Physical Exam General: Alert, no apparent distress. Neck: Full range of motion. Respiratory: Lungs clear, no respiratory distress. Chest: No accessory muscle use. Cardiovascular: Regular rate and rhythm, no murmurs. Gastrointestinal: Soft, nontender, nondistended. Bowels sounds present. No CVA tenderness : Atrophic vagina with evidence of lichen sclerosis of the vulva. No unusual discharge or erythema is noted. Extremities: Normal range of motion, no deformity. Neurologic: Oriented x4. Psychiatric: Normal mood and affect. Skin: Normal color, warm and dry. No edema, no ecchymosis. Progress Results/Orders Results/Orders Orders - KALI CONTRERAS NP Pelvic Set Up (01/05/25 ) Vital Signs 01/05/25 12:23 Temp 98.1 Pulse 87 Resp 16 B/P (MAP) 166/98 Pulse Ox 100 O2 Flow Rate 0 Laboratory Tests Test 01/05/25 12:27 Urine Specimen Description Cln catch midstream Urine Color Yellow Urine Clarity Slightly cloudy Urine pH 7.0 Urine Specific [place] 1.010 Urine Protein Negative Urine Glucose (UA) Negative Urine Ketones Negative Urine Occult Blood Negative Urine Nitrite Negative Urine Bilirubin Negative Urine Urobilinogen 0.2 Urine Leukocyte Esterase Negative Urine RBC 3-10 Urine WBC 0-4 Urine Squamous Epithelial Cells Many Urine Transitional Epithelial Cells Few Urine Bacteria Few Urine Mucus Moderate Urine Culture Indicated Not ind Volume Urine Centrifuged 10 ml Urine Comment Medical Decision Making Additional Comment It was eight 9-year-old female presents to the emergency department primarily due to concerns for vaginal pain with dysuria. Her urinalysis did not show any signs of infection. She has a history of atrophic vaginitis, for which she has an E string in place under the care of her bricklayer apprentice. Physical exam was done, and showed significant vaginal atrophy as well as evidence of lichen sclerosis of the vulva. She will be tx with the triamcinolone cream topically along with oral Diflucan to prevent yeast infection. She is to follow up with her bricklayer apprentice, or return here if worse. Departure Time of Disposition: 13:23 Disposition: 01 HOME / SELF CARE / HOMELESS Impression: Primary Impression: Lichen sclerosus of vulva Additional Impression: Atrophic vaginitis Discharge Instructions: Atrophic Vaginitis, Lichen Sclerosus Additional Instructions: No urinary tract infection found today. You have lichen sclerosis of the vulva. This is treated with a special cream that is applied to the vulva daily at bedtime x 10 days. You were also sent diflucan to prevent development of yeast infection. Take this as follows: One pill today and then one pill for the next two Fridays. See your bricklayer apprentice in the next couple weeks. Return to the ER if worse. Referrals: NO PRIMARY CARE PROVIDER (PCP) Prescriptions Fluconazole (Diflucan) 100 Mg Tablet 1 TAB PO DAILY for 3 Days, #3 TAB Prov: KALI CONTRERAS NP 01/05/25 Triamcinolone Acetonide 0.1% Crm* (Kenalog 0.1% Crm*) 1 Applic Tube 1 APPLIC TOP Q12H for 10 Days, #80 GM Prov: KALI CONTRERAS NP 01/05/25 Education Educated: Patient, Family Educated regarding: diagnosis, treatment, prognosis, need for follow up Signature Scribe Signature: no scribe Attestation: The note accurately reflects work and decisions made by me.Kali Flood NP 01/05/25 13:28 KALI CONTRERAS NP Jan 05, 2025 12:30
[2025-01-05 12:42] LABS: BILIRUBIN,URINE NEGATIVE (Neg); COLOR,URINE YELLOW (Yellow); GLUCOSE, URINE NEGATIVE (Neg); KETONES,URINE NEGATIVE (Neg); LEUKOCYTE ESTERASE ,URINE NEGATIVE (Neg); NITRITES, URINE NEGATIVE (Neg); OCCULT BLOOD,URINE NEGATIVE (Neg); PROTEIN,URINE NEGATIVE (Neg); UROBILINOGEN,URINE 0.2 E.U/dL (0.2-1.0)
[2025-01-05 12:44] LABS: UA COLLECTION TYPE CLN CATCH MIDSTREAM
[2025-01-05 12:48] LABS: CLARITY,URINE Slightly Cloudy (Clear)
[2025-01-05 12:49] LABS: BACTERIA,URINE FEW /HPF (Neg); MUCUS STRANDS MODERATE /LPF (Neg); SQUAMOUS EPITHELIAL CELL,UR MANY /LPF (FEW); TRANSITIONAL EPI CELLS,URINE FEW /HPF; WBC,URINE 0-4 /HPF (0-4)
[2025-01-05] MEDS ORDERED: FLUC100T PO (13:26)
[2025-01-05] MEDS ORDERED: KEN0.1O TOP (13:26)
[2025-01-05 13:33] VITALS: TEMP 98.1
== END 2025-01-05 13:35 | disposition home or self-care (01) ==
LOC: ER 12:22
DX: N90.4 Leukoplakia of vulva (principal); N95.2 Postmenopausal atrophic vaginitis; E78.00 Pure hypercholesterolemia, unspecified; Z88.1 Allergy status to other antibiotic agents; Z88.8 Allergy status to other drugs, medicaments and biological substances; Z79.899 Other long term (current) drug therapy
CPT/HCPCS: 81001; 99283